=== PATIENT | female | born 1955 | race Caucasian/White ===

== ENCOUNTER 2018-06-05 19:11 | Inpatient (IN) ==
[2018-06-05] MEDS ORDERED: KETOROLAC 30 MG/ML VIAL IV STA (19:24)
[2018-06-05] MEDS ORDERED: ONDANSETRON INJ 2 MG/ML 2 ML VIAL IV STA (19:24)
[2018-06-05] MEDS ORDERED: fentaNYL citrate 100 MCG/2 ML VIAL IV STA (19:24)
[2018-06-05 19:36] LABS: Basophils # (auto) 0.04 K/uL (0-0.2); Basophils % (auto) 0.4 %; Eosinophils # (auto) 0.16 K/uL (0-0.5); Eosinophils % (auto) 1.8 %; Hematocrit (blood only) 44.7 % (37-47); Hemoglobin 15.5 g/dL (12.0-16.0); Immature Granulocytes # (auto) 0.01 K/uL (0.00-0.02); Immature Granulocytes % (auto) 0.1 %; Lymphocytes % (auto) 24.3 %; Mean Corpuscular Hgb Conc 34.7 g/dL (32-36); Mean Corpuscular Volume 98.2 fL (80-100); Mean Platelet Volume 10.4 fL (7.4-10.4); Monocytes # (auto) 0.56 K/uL (0.11-0.59); Monocytes % (auto) 6.2 %; Neutrophils % (auto) 67.2 %; Platelet Count 234 K/uL (130-400); RDW Coefficient of Variation 13.6 % (11.5-14.5); RDW Standard Deviation 48.5 fL (36.4-46.3); Red Blood Count 4.55 M/uL (4.2-5.4); White Blood Count 9.07 K/uL (4.8-10.8)
[2018-06-05 19:50] LABS: iSTAT Hemoglobin 16.3 g/dl (12.0-16.0); iSTAT Ionized Calcium 1.13 mmol/l (1.12-1.32)
[2018-06-05 19:58] LABS: Albumin Level 3.7 gm/dl (3.4-5.0); BUN Creatinine Ratio 14.9 (10-20); Calcium 9.2 mg/dl (8.5-10.1); Creatinine Clr Calc Pharmacy 51.2 ml/min; Est GFR (African American) 55.4; Est GFR (Non-African American) 47.8; Potassium 3.4 mmol/L (3.5-5.1)
[2018-06-05 20:01] LABS: Albumin Globulin Ratio 0.8 (0.9-2); Bilirubin,Total 0.4 mg/dl (0.2-1); Globulin 4.6 gm/dl (2.5-4.0); Total Protein 8.3 gm/dl (6.4-8.2)
[2018-06-05] MEDS ORDERED: OPTIRAY 320 125ml IV PRN (20:18)
--- NOTE | 2018-06-05 20:37 | CT Scan Report ---
ABDOMEN AND PELVIS CT WITH IV CONTRAST CT DOSE: 1430.12 mGy.cm HISTORY: Acute generalized abdominal pain diffuse ab pain TECHNIQUE: Multiaxial CT images of the abdomen and pelvis were performed following the use of intrave nous contrast. A dose lowering technique was utilized adhering to the principles of ALARA. COMPARISON STUDY: CT abdomen and pelvis 05/23/2017. FINDINGS: Study is mildly motion degraded. Bilateral reticular and groundglass opacities are noted with associa la nena bronchial wall thickening. No pneumatosis or pneumoperitoneum. Imaged inferior cardiac chambers a re mildly enlarged. Coronary arterial calcifications are noted. Prior cholecystectomy. Mild dilation of the common bile duct, likely postsurgical. Liver is unremarka ble. Spleen, pancreas and adrenal glands are within normal limits. Kidneys, ureters and urinary bladd er are within normal limits. Heterogeneous marked thickening of the endometrium redemonstrated. No ad nexal mass lesions. Mixed plaque formation about the abdominal aorta without aneurysm. Nonspecific mi ldly prominent iliac chain lymph nodes are seen bilaterally measuring up to 1.2 cm. No small bowel obstruction. Minimal colonic diverticulosis without acute diverticulitis. Appendix deysi ears unremarkable. No ascites or mesenteric inflammation. Soft tissues are unremarkable. Multilevel s pondylitic spurring with facet arthrosis about the lumbar spine. Bones appear grossly intact. IMPRESSION: 1. Marked thickening with heterogeneous appearance of the endometrium redemonstrated. Correlation wit h gynecologic consultation recommended. 2. No bowel obstruction or focal bowel wall thickening. Normal appendix. 3. Bibasilar bronchial wall thickening with groundglass and reticular opacities suggestive of scarrin g/atelectasis with nonspecific pneumonitis also in the differential. 4. Prior cholecystectomy. 5. Additional findings as above. Electronically signed by: Eren Garcia M.D. 06/05/2018 8:36 PM
[2018-06-05 22:20] LABS: Appearance Urine Clear (Clear); Bacteria Urine Automated Negative (Negative); Bilirubin Urine Negative (Negative); Color Urine Yellow; Epithelial Cell Urine Auto >30 /lpf (0-5); Glucose Urine UA Negative (Negative); Ketones Urine Negative (Negative); Leukocyte Esterase Urine 1+ (Negative); Nitrite Urine Negative (Negative); Protein Urine Negative (Negative); Specific Gravity Urine 1.042 (1.000-1.030); Urobilinogen Urine Negative (Negative)
[2018-06-06] MEDS ORDERED: fentaNYL citrate 100 MCG/2 ML VIAL IV PRN (02:27)
--- NOTE | 2018-06-06 03:04 | Emergency Department Note ---
Entered by Gilmar Maldonado acting as a scribe for Keith Gonzalez MD History of Present Illness General Chief complaint: Abdominal Pain Stated complaint: AB PAIN Time Seen by Provider: 06/05/18 19:12 Source: patient History of Present Illness Provider complaint: Abdominal Pain Onset (ago): year(s) 3 Location: abdomen Radiation: other (radiates to pelvis and legs) Pain Consistency: + constant Relieved By: not by medication Associated symptoms: + nausea/vomiting (Only vomiting) and + other (diarrhea) The patient is a 63 y/o white female w/ PMHx of HTN, acute UTI, and asthma who presents to the ED w/ CC of constant abdominal beginning 3 years ago. The patient states she has the pain "all the time". The patient localizes the pain to the bilateral lower abdomen and that it radiates to her pelvis. The patient also adds that the pain radiates to her legs. The patient reports the lower right hurts the most. The patient notes that she is unable to eat. She adds she has intermittent vomiting, and intermittent diarrhea. The patient took Ibuprofen for the pain and it offered no relief. The patient additionally reports that she has a history of endometrial pelvic cancer, but states she is not currently on chemotherapy or radiation. She states the cancer is not operable. The patient reports she does not consume alcohol or use tobacco. The patient notes general problems urinating and moving her bowels. The patient states she is currently taking an antibiotic for a UTI. On antibiotic for UTI Home Medications Home Medications Medication Instructions Recorded Confirmed Type Saccharomyces boulardii [Florastor] 250 mg PO BID #20 cap 05/23/18 06/05/18 Rx hydrocodone-acetaminophen 1 tab PO Q6 PRN 05/23/18 06/05/18 History megestrol 2 tab PO BID 05/23/18 06/05/18 History ondansetron 4 mg PO Q6H PRN #14 tab 05/23/18 06/05/18 Rx ibuprofen 400 mg PO QID PRN 06/05/18 06/05/18 History ibuprofen-diphenhydramine cit 2 cap PO HS PRN 06/05/18 06/05/18 History [Advil PM] Allergies Allergy/AdvReac Type Severity Reaction Status Date / Time morphine Allergy Swelling Verified 05/23/18 17:03 of the Eye Past Med/Surg History Medical History Gout (Chronic) Asthma (Chronic) HTN (hypertension) (Chronic) Morbid obesity (Chronic) Gait abnormality (12/28/13) Surgical History Hx of cholecystectomy (Chronic) Social History Current Living Situation: Spouse Other Information That Helps Us Care for You: No Feels Safe at Home: Yes Safety Concerns: Feels Safe At This Time Smoking Status: Former smoker Hx Alcohol Use: No Hx Substance Use: No Beliefs That Will Affect Care: None Preferred Language: Afghan Review of Systems See HPI for pertinent positives & negatives. and A total of 10 systems reviewed and were otherwise negative Physical Exam Vital Signs Vital Signs - 24 hr 06/05/18 19:21 06/05/18 19:39 06/05/18 20:00 Temperature 98.8 F Temperature Source Oral Sepsis Recent Fever Within 48 Hours No Sepsis Action Taken by Nursing No Action Required Pulse Rate 89 93 H 85 Pulse Rate [Right Finger] Respiratory Rate 22 22 4 L Respiratory Effort / Characteristics Non-Labored Respiratory Depth Normal Blood Pressure 177/108 H Blood Pressure [Left Arm] Blood Pressure Mean 131 Blood Pressure Mean [Left Arm] Pulse Oximetry 98 99 74 L Oxygen Delivery Method Room Air Oxygen Flow Rate 06/05/18 20:30 06/05/18 20:47 06/05/18 21:00 Temperature Temperature Source Sepsis Recent Fever Within 48 Hours Sepsis Action Taken by Nursing Pulse Rate 76 61 57 L Pulse Rate [Right Finger] Respiratory Rate 25 H 16 10 L Respiratory Effort / Characteristics Respiratory Depth Blood Pressure 170/98 H Blood Pressure [Left Arm] Blood Pressure Mean 122 Blood Pressure Mean [Left Arm] Pulse Oximetry 94 99 98 Oxygen Delivery Method Oxygen Flow Rate 06/05/18 21:02 06/05/18 21:30 06/05/18 21:57 Temperature Temperature Source Sepsis Recent Fever Within 48 Hours Sepsis Action Taken by Nursing Pulse Rate 59 L 71 52 L Pulse Rate [Right Finger] Respiratory Rate 13 20 22 Respiratory Effort / Characteristics Respiratory Depth Blood Pressure 246/129 H 153/89 H Blood Pressure [Left Arm] Blood Pressure Mean 168 110 Blood Pressure Mean [Left Arm] Pulse Oximetry 99 99 99 Oxygen Delivery Method Oxygen Flow Rate 06/05/18 21:58 06/05/18 22:00 06/05/18 22:01 Temperature Temperature Source Sepsis Recent Fever Within 48 Hours Sepsis Action Taken by Nursing Pulse Rate 51 L 51 L Pulse Rate [Right Finger] 52 L Respiratory Rate 14 13 Respiratory Effort / Characteristics Respiratory Depth Blood Pressure 163/77 H Blood Pressure [Left Arm] 153/89 H Blood Pressure Mean 105 Blood Pressure Mean [Left Arm] 110 Pulse Oximetry 100 100 100 Oxygen Delivery Method Nasal Cannula Oxygen Flow Rate 2 06/05/18 22:30 06/05/18 22:32 06/05/18 23:00 Temperature Temperature Source Sepsis Recent Fever Within 48 Hours Sepsis Action Taken by Nursing Pulse Rate 60 54 L 61 Pulse Rate [Right Finger] Respiratory Rate 20 13 15 Respiratory Effort / Characteristics Respiratory Depth Blood Pressure Blood Pressure [Left Arm] Blood Pressure Mean 135 Blood Pressure Mean [Left Arm] Pulse Oximetry 100 100 100 Oxygen Delivery Method Oxygen Flow Rate 06/05/18 23:02 06/05/18 23:30 06/05/18 23:32 Temperature Temperature Source Sepsis Recent Fever Within 48 Hours Sepsis Action Taken by Nursing Pulse Rate 61 52 L 53 L Pulse Rate [Right Finger] Respiratory Rate 16 17 17 Respiratory Effort / Characteristics Respiratory Depth Blood Pressure 173/107 H Blood Pressure [Left Arm] Blood Pressure Mean 134 129 Blood Pressure Mean [Left Arm] Pulse Oximetry 100 100 100 Oxygen Delivery Method Oxygen Flow Rate 06/06/18 00:00 06/06/18 00:01 06/06/18 00:30 Temperature Temperature Source Sepsis Recent Fever Within 48 Hours Sepsis Action Taken by Nursing Pulse Rate 55 L 55 L 52 L Pulse Rate [Right Finger] Respiratory Rate 18 18 13 Respiratory Effort / Characteristics Respiratory Depth Blood Pressure 169/67 H Blood Pressure [Left Arm] Blood Pressure Mean 101 Blood Pressure Mean [Left Arm] Pulse Oximetry 99 98 100 Oxygen Delivery Method Oxygen Flow Rate 06/06/18 00:32 06/06/18 01:01 06/06/18 02:02 Temperature Temperature Source Sepsis Recent Fever Within 48 Hours Sepsis Action Taken by Nursing Pulse Rate 57 L 53 L 67 Pulse Rate [Right Finger] Respiratory Rate 14 14 13 Respiratory Effort / Characteristics Respiratory Depth Blood Pressure 145/71 H 153/79 H 153/82 H Blood Pressure [Left Arm] Blood Pressure Mean 95 103 105 Blood Pressure Mean [Left Arm] Pulse Oximetry 99 100 96 Oxygen Delivery Method Oxygen Flow Rate 06/06/18 02:32 Temperature Temperature Source Sepsis Recent Fever Within 48 Hours Sepsis Action Taken by Nursing Pulse Rate 49 L Pulse Rate [Right Finger] Respiratory Rate 15 Respiratory Effort / Characteristics Respiratory Depth Blood Pressure 188/83 H Blood Pressure [Left Arm] Blood Pressure Mean 118 Blood Pressure Mean [Left Arm] Pulse Oximetry 100 Oxygen Delivery Method Oxygen Flow Rate GENERAL: Well nourished, NAD, non-toxic. mildly uncomfortable in appearance. EYE EXAM: Normal conjunctiva. PERRL, no anisocoria and EOM's grossly intact w/o pain. OROPHARYNX: No swelling of the lips, moist mucus membranes. NECK: Supple, no nuchal rigidity, no adenopathy, non-tender. No signs of meningismus. LUNGS: Clear to auscultation bilaterally. Normal chest wall mechanics. HEART: NSR, no MRG. ABDOMEN: Abdomen soft, normo-active bowel sounds, no masses, no rebound or guarding. Mild diffuse abdominal pain, worse in the lower abdomen. BACK: No CVA TTP. SKIN: No rashes and no bruising. UPPER EXTREMITIES: Upper extremities are grossly normal. LOWER EXTREMITIES: No pitting edema. No calf pain. NEURO EXAM: Cranial nerves II-XII grossly intact, normal speech, moves all 4 extremities on command w/o issue. Course 1914: Past medical records reviewed. The patient was evaluated in room A10, and a complete history and physical examination were performed. 2328: I reviewed the patient's case with Dr. Aponte Manufacturing Development Engineer. Oncology. He agrees with current plan of care. He wants her to call the office for follow up. 0055: After further discussion with the son and Dr. Aponte, the son is demanding that the patient be admitted or transferred because he is not able to come get the patient secondary to weather. Dr. Aponte has accepted the patient for transfer. 0129: The accepting facility does not have an open bed and is not sure when one will be open. 0155: I reviewed the patient's case with Dr. Martin, [facility] Hospitalist. He is requesting I contact [facility] for admission. 0201: I reviewed the patient's case with Dr. Gonzalez, [facility] SURGICAL FIRST ASSISTANT. She will not accept the patient for admission. 0230: The patient was signed out to Dr. Oakley at the change of shift pending transport. Administered Medications Discontinued Medications Hydrocodone Bitart/Acetaminophen (Dunn 5/325) 1 tab PO Q6 PRN PRN Reason: Pain Stop: 06/20/18 10:15 Last Admin: 06/06/18 13:59 Dose: 1 tab Hydrocodone Bitart/Acetaminophen (Dunn 5/325) 1 tab PO NOW STA Stop: 06/06/18 16:07 Last Admin: 06/06/18 16:23 Dose: 1 tab Fentanyl Citrate (Fentanyl Citrate) 100 mcg IV NOW STA Stop: 06/05/18 19:25 Last Admin: 06/05/18 19:57 Dose: 100 mcg Fentanyl Citrate (Fentanyl Citrate) 50 mcg IV NOW STA Stop: 06/06/18 04:44 Last Admin: 06/06/18 05:04 Dose: 50 mcg Hydralazine HCl (Hydralazine Hcl) 10 mg IV PRN STA Stop: 06/06/18 10:20 Last Admin: 06/06/18 11:56 Dose: 10 mg Sodium Chloride (Nss 1000ml) 1,000 mls @ 125 mls/hr IV .Q8H GLENROY Stop: 07/06/18 04:44 Last Admin: 06/06/18 11:45 Dose: 125 mls/hr Infusion: 06/06/18 11:41 Dose: 0 mls/hr Admin: 06/06/18 05:04 Dose: 125 mls/hr Sodium Chloride (Nss 1000ml) 500 mls @ 999 mls/hr IV .Q31M ONE Stop: 06/06/18 05:13 Last Infusion: 06/06/18 05:56 Dose: 0 mls/hr Admin: 06/06/18 05:04 Dose: 999 mls/hr Pantoprazole Sodium 40 mg/ (Syringe) 10 mls @ 5 mls/min IV DAILY@1100 GLENROY Stop: 07/06/18 10:59 Last Admin: 06/06/18 11:56 Dose: 5 mls/min Ioversol (Optiray 320 125ml) 115 ml IV ONCE PRN PRN Reason: Interaction Checking Stop: 06/09/18 20:17 Last Admin: 06/05/18 20:18 Dose: 115 ml Ketorolac Tromethamine (Toradol) 30 mg IV NOW STA Stop: 06/05/18 19:25 Last Admin: 06/05/18 19:58 Dose: 30 mg Ondansetron HCl (Zofran) 4 mg IV NOW STA Stop: 06/05/18 19:25 Last Admin: 06/05/18 19:58 Dose: 4 mg Ondansetron HCl (Zofran) 4 mg IV Q6H PRN PRN Reason: Nausea Stop: 07/06/18 10:13 Last Admin: 06/06/18 14:02 Dose: 4 mg Saccharomyces Boulardii (Florastor) 250 mg PO BID GLENROY Stop: 07/06/18 08:59 Last Admin: 06/06/18 10:01 Dose: 250 mg Medical Decision Making Medical Records Attestation: I reviewed the patient's medical records. Home Medications Current Medication List: was personally reviewed by me Laboratory Data Attestation: I reviewed the patient's lab results. Result diagrams: 06/06/18 Unknown 06/06/18 Unknown Lab Results 06/05/18 06/05/18 06/05/18 Range/Units 19:28 19:28 19:32 WBC 9.07 (4.8-10.8) K/uL RBC 4.55 (4.2-5.4) M/uL Hgb 15.5 (12.0-16.0) g/dL POC Hgb (12.0-16.0) g/dl Hct 44.7 (37-47) % POC Hct (37-47) % MCV 98.2 (80-100) fL MCH 34.1 H (25-34) pg MCHC 34.7 (32-36) g/dL RDW Std Deviation 48.5 H (36.4-46.3) fL RDW Coeff of Dhaval 13.6 (11.5-14.5) % Plt Count 234 (130-400) K/uL MPV 10.4 (7.4-10.4) fL Immature Gran % (Auto) 0.1 % Neut % (Auto) 67.2 % Lymph % (Auto) 24.3 % [place] % (Auto) 6.2 % Eos % (Auto) 1.8 % Baso % (Auto) 0.4 % Immature Gran # (Auto) 0.01 (0.00-0.02) K/uL Neut # (Auto) 6.10 (1.4-6.5) K/uL Lymph # (Auto) 2.20 (1.2-3.4) K/uL [place] # (Auto) 0.56 (0.11-0.59) K/uL Eos # (Auto) 0.16 (0-0.5) K/uL Baso # (Auto) 0.04 (0-0.2) K/uL POC Sodium (135-144) mEq/L Sodium 137 (136-145) mmol/L POC Potassium (3.3-5.0) mEq/L Potassium 3.4 L (3.5-5.1) mmol/L POC Chloride (101-112) mEq/L Chloride 103 (98-107) mmol/L Carbon Dioxide 24 (21-32) mmol/L POC Total CO2 (24-31) mEq/l Anion Gap 10.0 (3-11) POC Anion Gap (16-25) mmol/L POC BUN (7-18) mg/dl BUN 18 (7-18) mg/dl Creatinine 1.22 H (0.6-1.2) mg/dl POC Creatinine (0.6-1.3) mg/dl Est Cr Clr Drug Dosing 51.2 ml/min Est GFR ( Amer) 55.4 Est GFR (Non-Af Amer) 47.8 BUN/Creatinine Ratio 14.9 (10-20) Glucose 126 H (70-99) mg/dl POC Glucose (other) (70-99) mg/dl POC Lactic Acid Palmer 2.52 H (0.90-1.70) mmol/L Lactate (0.4-2.0) mmol/L Calcium 9.2 (8.5-10.1) mg/dl POC Ioniz Calcium Cari (1.12-1.32) mmol/l Phosphorus (2.5-4.9) mg/dl Magnesium (1.8-2.4) mg/dl Total Bilirubin 0.4 (0.2-1) mg/dl AST 17 (15-37) U/L ALT 21 (12-78) U/L Alkaline Phosphatase 54 (45-117) U/L Total Protein 8.3 H (6.4-8.2) gm/dl Albumin 3.7 (3.4-5.0) gm/dl Globulin 4.6 H (2.5-4.0) gm/dl Albumin/Globulin Ratio 0.8 L (0.9-2) Lipase 74 (73-393) U/L TSH (0.300-4.500) uIu/ml Urine Color Urine Appearance (Clear) Urine pH (4.5-7.5) Ur Specific [place] (1.000-1.030) Urine Protein (Negative) Urine Glucose (UA) (Negative) Urine Ketones (Negative) Urine Blood (Negative) Urine Nitrite (Negative) Urine Bilirubin (Negative) Urine Urobilinogen (Negative) Ur Leukocyte Esterase (Negative) Urine WBC (Auto) (0-5) /hpf Urine RBC (Auto) (0-4) /hpf U Hyaline Cast (Auto) (0-5) /lpf U Epithel Cells (Auto) (0-5) /lpf Urine Bacteria (Auto) (Negative) Ur Renal Epithelial Cell 06/05/18 06/05/18 06/06/18 Range/Units 19:35 21:30 05:14 WBC (4.8-10.8) K/uL RBC (4.2-5.4) M/uL Hgb (12.0-16.0) g/dL POC Hgb 16.3 H (12.0-16.0) g/dl Hct (37-47) % POC Hct 48 H (37-47) % MCV (80-100) fL MCH (25-34) pg MCHC (32-36) g/dL RDW Std Deviation (36.4-46.3) fL RDW Coeff of Dhaval (11.5-14.5) % Plt Count (130-400) K/uL MPV (7.4-10.4) fL Immature Gran % (Auto) % Neut % (Auto) % Lymph % (Auto) % [place] % (Auto) % Eos % (Auto) % Baso % (Auto) % Immature Gran # (Auto) (0.00-0.02) K/uL Neut # (Auto) (1.4-6.5) K/uL Lymph # (Auto) (1.2-3.4) K/uL [place] # (Auto) (0.11-0.59) K/uL Eos # (Auto) (0-0.5) K/uL Baso # (Auto) (0-0.2) K/uL POC Sodium 141 (135-144) mEq/L Sodium (136-145) mmol/L POC Potassium 3.4 (3.3-5.0) mEq/L Potassium (3.5-5.1) mmol/L POC Chloride 102 (101-112) mEq/L Chloride (98-107) mmol/L Carbon Dioxide (21-32) mmol/L POC Total CO2 23 L (24-31) mEq/l Anion Gap (3-11) POC Anion Gap 21.0 (16-25) mmol/L POC BUN 18 (7-18) mg/dl BUN (7-18) mg/dl Creatinine (0.6-1.2) mg/dl POC Creatinine 1.1 (0.6-1.3) mg/dl Est Cr Clr Drug Dosing ml/min Est GFR ( Amer) Est GFR (Non-Af Amer) BUN/Creatinine Ratio (10-20) Glucose (70-99) mg/dl POC Glucose (other) 122 H (70-99) mg/dl POC Lactic Acid Palmer (0.90-1.70) mmol/L Lactate 1.3 (0.4-2.0) mmol/L Calcium (8.5-10.1) mg/dl POC Ioniz Calcium Cari 1.13 (1.12-1.32) mmol/l Phosphorus (2.5-4.9) mg/dl Magnesium (1.8-2.4) mg/dl Total Bilirubin (0.2-1) mg/dl AST (15-37) U/L ALT (12-78) U/L Alkaline Phosphatase (45-117) U/L Total Protein (6.4-8.2) gm/dl Albumin (3.4-5.0) gm/dl Globulin (2.5-4.0) gm/dl Albumin/Globulin Ratio (0.9-2) Lipase (73-393) U/L TSH (0.300-4.500) uIu/ml Urine Color Yellow Urine Appearance Clear (Clear) Urine pH 6.0 (4.5-7.5) Ur Specific [place] 1.042 H (1.000-1.030) Urine Protein Negative (Negative) Urine Glucose (UA) Negative (Negative) Urine Ketones Negative (Negative) Urine Blood 1+ H (Negative) Urine Nitrite Negative (Negative) Urine Bilirubin Negative (Negative) Urine Urobilinogen Negative (Negative) Ur Leukocyte Esterase 1+ H (Negative) Urine WBC (Auto) 10-30 H (0-5) /hpf Urine RBC (Auto) 5-10 H (0-4) /hpf U Hyaline Cast (Auto) 1-5 (0-5) /lpf U Epithel Cells (Auto) >30 H (0-5) /lpf Urine Bacteria (Auto) Negative (Negative) Ur Renal Epithelial Cell Not Reportable 06/06/18 06/06/18 Range/Units Unknown Unknown WBC 6.88 (4.8-10.8) K/uL RBC 4.16 L (4.2-5.4) M/uL Hgb 13.8 (12.0-16.0) g/dL POC Hgb (12.0-16.0) g/dl Hct 41.1 (37-47) % POC Hct (37-47) % MCV 98.8 (80-100) fL MCH 33.2 (25-34) pg MCHC 33.6 (32-36) g/dL RDW Std Deviation 50.1 H (36.4-46.3) fL RDW Coeff of Dhaval 14.1 (11.5-14.5) % Plt Count 219 (130-400) K/uL MPV 10.4 (7.4-10.4) fL Immature Gran % (Auto) 0.0 % Neut % (Auto) 53.1 % Lymph % (Auto) 34.0 % [place] % (Auto) 8.6 % Eos % (Auto) 3.6 % Baso % (Auto) 0.7 % Immature Gran # (Auto) 0.00 (0.00-0.02) K/uL Neut # (Auto) 3.65 (1.4-6.5) K/uL Lymph # (Auto) 2.34 (1.2-3.4) K/uL [place] # (Auto) 0.59 (0.11-0.59) K/uL Eos # (Auto) 0.25 (0-0.5) K/uL Baso # (Auto) 0.05 (0-0.2) K/uL POC Sodium (135-144) mEq/L Sodium 138 (136-145) mmol/L POC Potassium (3.3-5.0) mEq/L Potassium 3.8 (3.5-5.1) mmol/L POC Chloride (101-112) mEq/L Chloride 105 (98-107) mmol/L Carbon Dioxide 29 (21-32) mmol/L POC Total CO2 (24-31) mEq/l Anion Gap 4.0 (3-11) POC Anion Gap (16-25) mmol/L POC BUN (7-18) mg/dl BUN 16 (7-18) mg/dl Creatinine 1.18 (0.6-1.2) mg/dl POC Creatinine (0.6-1.3) mg/dl Est Cr Clr Drug Dosing 53.0 ml/min Est GFR ( Amer) 57.6 Est GFR (Non-Af Amer) 49.7 BUN/Creatinine Ratio 13.6 (10-20) Glucose 126 H (70-99) mg/dl POC Glucose (other) (70-99) mg/dl POC Lactic Acid [place] (0.90-1.70) mmol/L Lactate (0.4-2.0) mmol/L Calcium 9.0 (8.5-10.1) mg/dl POC Ioniz Calcium Cari (1.12-1.32) mmol/l Phosphorus 3.7 (2.5-4.9) mg/dl Magnesium 1.7 L (1.8-2.4) mg/dl Total Bilirubin (0.2-1) mg/dl AST (15-37) U/L ALT (12-78) U/L Alkaline Phosphatase (45-117) U/L Total Protein (6.4-8.2) gm/dl Albumin (3.4-5.0) gm/dl Globulin (2.5-4.0) gm/dl Albumin/Globulin Ratio (0.9-2) Lipase (73-393) U/L TSH 2.580 (0.300-4.500) uIu/ml Urine Color Urine Appearance (Clear) Urine pH (4.5-7.5) Ur Specific [place] (1.000-1.030) Urine Protein (Negative) Urine Glucose (UA) (Negative) Urine Ketones (Negative) Urine Blood (Negative) Urine Nitrite (Negative) Urine Bilirubin (Negative) Urine Urobilinogen (Negative) Ur Leukocyte Esterase (Negative) Urine WBC (Auto) (0-5) /hpf Urine RBC (Auto) (0-4) /hpf U Hyaline Cast (Auto) (0-5) /lpf U Epithel Cells (Auto) (0-5) /lpf Urine Bacteria (Auto) (Negative) Ur Renal Epithelial Cell Imaging Data Radiologist's Impression: Radiology results as stated below per my review and the radiologist's interpretation: ABDOMEN AND PELVIS CT WITH IV CONTRAST CT DOSE: 1430.12 mGy.cm HISTORY: Acute generalized abdominal pain diffuse ab pain TECHNIQUE: Multiaxial CT images of the abdomen and pelvis were performed following the use of intravenous contrast. A dose lowering technique was utilized adhering to the principles of ALARA. COMPARISON STUDY: CT abdomen and pelvis 05/23/2017. FINDINGS: Study is mildly motion degraded. Bilateral reticular and groundglass opacities are noted with associated bronchial wall thickening. No pneumatosis or pneumoperitoneum. Imaged inferior cardiac chambers are mildly enlarged. Coronary arterial calcifications are noted. Prior cholecystectomy. Mild dilation of the common bile duct, likely postsurgical. Liver is unremarkable. Spleen, pancreas and adrenal glands are within normal limits. Kidneys, ureters and urinary bladder are within normal limits. Heterogeneous marked thickening of the endometrium redemonstrated. No adnexal mass lesions. Mixed plaque formation about the abdominal aorta without aneurysm. Nonspecific mildly prominent iliac chain lymph nodes are seen bilaterally measuring up to 1.2 cm. No small bowel obstruction. Minimal colonic diverticulosis without acute diverticulitis. Appendix appears unremarkable. No ascites or mesenteric inflammation. Soft tissues are unremarkable. Multilevel spondylitic spurring with facet arthrosis about the lumbar spine. Bones appear grossly intact. IMPRESSION: 1. Marked thickening with heterogeneous appearance of the endometrium redemonstrated. Correlation with gynecologic consultation recommended. 2. No bowel obstruction or focal bowel wall thickening. Normal appendix. 3. Bibasilar bronchial wall thickening with groundglass and reticular opacities suggestive of scarring/atelectasis with nonspecific pneumonitis also in the differential. 4. Prior cholecystectomy. 5. Additional findings as above. Electronically signed by: Eren Garcia M.D. 06/05/2018 8:36 PM MDM Narrative The patient is a 63 y/o white female w/ PMHx of HTN, acute UTI, and asthma who presents to the ED w/ CC of constant abdominal beginning 3 years ago. Differential diagnosis: Etiologies such as biliary colic, cholecystitis, hepatitis, perihepatitis, pancreatitis, cardiac disease, pancreatitis, gastritis, peptic ulcer disease, appendicitis, ovarian cyst, ovarian torsion, pelvic inflammatory disease, cystitis, diverticulitis, mesenteric ischemia, inflammatory bowel disease, ileus , bowel obstruction, aortic pathology, shingles, as well as others were considered. Patient was seen and evaluated the bedside. The patient states that she has had a chronic abdominal pain which is acutely worse today. The patient does complain of mild diffuse abdominal discomfort. Upon review of the records the patient does have a history of endometrial cancer per the patient's blood work. The patient did have blood work completed along with a CT of the abdomen pelvis and urinalysis. Patient's blood work showed a normal white count. The patient has a normal H& H. Patient has mild kidney dysfunction but is fairly unchanged from prior from 1.1 to 1.2 creatinine and mild hypokalemia. The patient did not complain of any urinary symptoms believe urinalysis is likely a contaminant given the number of epithelial cells. Patient CT abdomen abdomen pelvis did show thickening and heterogeneous appearance of the endometrium which is consistent with the patient's prior history of endometrial cancer. I did discuss these findings with the patient. The patient was accompanied by another person who was stating that they are his son-in-law had spoken with some on-call physician that was stating that she needs to have an operation now. I did discuss that her blood work is fairly unchanged compared to prior and the patient CT is grossly unchanged from prior and the patient does have likely endometrial cancer. After further discussion I stated that I would talk with the Pilar Kolb physician. I was able to speak with Dr. Aponte who is the patient's home care specialist oncologist. Per Dr. Aponte the patient has not been seen in several months and the patient is not made it to any appointments in the past. This has been likely due to transportation issues. We did discuss the CT findings as well as the blood work which I stated are unchanged and the patient has a stable H&H. Upon further discussion the son-in-law reportedly did call Dr. Aponte and at his behest Dr. Aponte is willing to accept the patient has a transfer. Unfortunately the transferring hospital was at capacity did not have any current bed availability and the patient cannot be transferred at this time. I did speak with the on-call hospitalist who declined to evaluate the patient at this time. I did speak discussed the case with the SURGICAL FIRST ASSISTANT physician who believe that the patient was better suited for the medicine service. After further discussion with my colleague in the emergency department he was willing to monitor the patient as there was a possibility that the patient would have a bed in the morning. I did sign out the patient to the nighttime physician Dr. Oakley pending further evaluation and disposition and potential transfer. Impression & Plan Abdominal pain, Hypertension, Endometrial cancer Discharge Plan Visit Data *Final* Discharge Date/Time: 06/06/18 10:23 Chief Complaint: Abdominal Pain Stated Complaint: AB PAIN ED Provider: Unruly Oakley Discharge Problem: Abdominal pain, Hypertension, Endometrial cancer Patient Disposition: Admitted As Inpatient Discharge Instructions Interventions: ED Discharge Assessment Last Done: 06/06/18 10:23 The scribe's documentation has been prepared under my direction and personally reviewed by me in its entirety. I confirm that the note above accurately reflects all work, treatment, procedures, and medical decision making performed by me.
[2018-06-06] MEDS ORDERED: fentaNYL citrate 100 MCG/2 ML VIAL IV STA (04:43)
[2018-06-06] MEDS ORDERED: SODIUM CHLORIDE 0.9% 1000ML 500 ML IV ONE (04:43)
[2018-06-06] MEDS: SODIUM CHLORIDE 0.9% 1000ML 1,000 ML IV SCH ×2 (05:04→11:45)
--- NOTE | 2018-06-06 06:06 | Emergency Department Note ---
ED Visit Note ED Physician Sign Out Note: 63 yr old female with reportedly known endometrial CA with persistent abdominal pain and periodic vaginal bleeding arrived earlier for persistent discomfort. Evaluated by Dr Gonzalez and after prolonged stay decision to transfer to [facility] as patient unable to go home and no Scientist Engineer Onc at this facility. Dr Gonzalez already set up transfer. Due to prolonged time to transfer attempt was made at admitting to this facility while awaiting opening bed but both Scientist Engineer and Hospitalist have declined to do this at this time requesting staying in ED longer to see if bed opens up. Patient was signed out to me pending bed opening up. I reviewed case at bedside with patient and . She notes ongoing pain and issues for 3 years. She admits she has follow up with Scientist [facility] Onc in [place] but has been unable to get to any appointments for this due to weather and transport issues. She has been using [place] periodically for pain. She denies vomiting though notes continued abdominal pain. NO peritonitis by exam. Review of CT unremarkable. Labs earlier with elevated POC lactate. She was given 500ml IV fluids by me and repeat Lactate wnl at this time. She has HTN which is improving with pain medications. She is stable and in no distress. I reviewed issues with transfer and she and note they can not go home and still wish to be transferred to [facility] to be evaluated by Scientist Engineer Onc. Reviewed plan that patient has accepting physician there Dr Aponte. Patient eventually fell asleep and in no distress. I signed case out to Dr Smiley with plan for recheck of bed status in a few hours and further decision on disposition at that time. Unruly Oakley MD
[2018-06-06] MEDS ORDERED: SACCHAROMYCES BOULARDII 250 MG CAP PO SCH (09:00)
[2018-06-06] MEDS ORDERED: ZOLPIDEM TARTRATE 5 MG TAB PO PRN (10:14)
[2018-06-06] MEDS ORDERED: ACETAMINOPHEN 325 MG TAB PO PRN (10:14)
[2018-06-06] MEDS ORDERED: ALUMINUM/MAGNESIUM SUSP 30 ML UDC PO PRN (10:14)
[2018-06-06] MEDS ORDERED: POLYETHYLENE (MIRALAX) 17 GM PACK PO PRN (10:14)
[2018-06-06] MEDS ORDERED: ONDANSETRON INJ 2 MG/ML 2 ML VIAL IV PRN (10:14)
[2018-06-06] MEDS ORDERED: MAGNESIUM HYDROXIDE SUSP 30 ML UDC PO PRN (10:14)
[2018-06-06] MEDS ORDERED: HYDROCODONE/ACETAMOPHEN 5/325MG TAB PO PRN (10:16)
[2018-06-06] MEDS ORDERED: HydrALAZINE HCL 20 MG/ML VIAL IV STA (10:19)
--- NOTE | 2018-06-06 10:24 | Emergency Department Note ---
ED Visit Note The patient was signed out to me awaiting transfer to [facility]. The patient was accepted by Dr. Aponte. He is a gynecology oncologist. The patient has chronic abdominal pain and is being transferred there for surgery. There were no beds available overnight and we called back this morning and they stated they have to hold in the emergency department and could not accept the patient today. They may be able to accept the patient later if beds open up otherwise they did not know a good timeframe when the patient could be transferred there. For this reason, I spoke with the hospitalist who will admit the patient for pain control and awaiting transfer to [facility]. .
[2018-06-06 10:57] LABS: Basophils # (auto) 0.05 K/uL (0-0.2); Basophils % (auto) 0.7 %; Eosinophils # (auto) 0.25 K/uL (0-0.5); Eosinophils % (auto) 3.6 %; Hematocrit (blood only) 41.1 % (37-47); Hemoglobin 13.8 g/dL (12.0-16.0); Lymphocytes # (auto) 2.34 K/uL (1.2-3.4); Mean Corpuscular Volume 98.8 fL (80-100); Mean Platelet Volume 10.4 fL (7.4-10.4); Monocytes # (auto) 0.59 K/uL (0.11-0.59); Monocytes % (auto) 8.6 %; Neutrophils # (auto) 3.65 K/uL (1.4-6.5); Neutrophils % (auto) 53.1 %; Platelet Count 219 K/uL (130-400); RDW Coefficient of Variation 14.1 % (11.5-14.5); RDW Standard Deviation 50.1 fL (36.4-46.3); Red Blood Count 4.16 M/uL (4.2-5.4); White Blood Count 6.88 K/uL (4.8-10.8)
[2018-06-06 11:07] LABS: Mean Corpuscular Hgb Conc 33.6 g/dL (32-36)
[2018-06-06 11:15] LABS: BUN Creatinine Ratio 13.6 (10-20); Est GFR (African American) 57.6; Est GFR (Non-African American) 49.7; Magnesium 1.7 mg/dl (1.8-2.4); Potassium 3.8 mmol/L (3.5-5.1)
[2018-06-06 11:26] LABS: Phosphorus 3.7 mg/dl (2.5-4.9)
[2018-06-06] MEDS ORDERED: PANTOprazole 40 MG in SYRINGE 0 ML IV SCH (12:00)
--- NOTE | 2018-06-06 12:44 | History and Physical Report ---
DATE OF ADMISSION: 06/05/2018 This is level 3 inpatient admission, 35 minutes. CHIEF COMPLAINT: Possible malignancy of endometrium associated with vaginal bleeding spot. HISTORY OF PRESENT ILLNESS: Patient is a 63-year-old white female with a significant past medical history of hypertension, UTI, endometrial cancer, gout, asthma, hypertension, morbid obesity, history of cholecystectomy, postmenopausal vaginal bleeding, thickened endometrium, came to the hospital Emergency Room yesterday on 06/05/2018. Patient's chief complaint was abdominal pain for 3 years associated with vaginal bleeding, has been having pain all the time. The pain was localized in bilateral lower abdomen, radiation to her pelvis and her legs too. Patient reportedly is not able to eat, has intermittent vomiting, intermittent diarrhea. She reported a history of endometrial pelvic cancer, currently not on any chemo or radiation therapy. She was reporting that the cancer was not operable. She reportedly was taking an antibiotic for current UTI. Patient was visiting Emergency Room at 7 o'clock last night. ED physician was planning to transfer to [facility] for further evaluation and treatment, and it had been taking time. I was told the ED physician had all the paperwork done and had accepting physicians in [facility]; however, a bed was not available yet. Therefore, they asked hospitalist to admit the patient. When I interviewed the patient, patient was in sleep, in no acute distress, awakable, conversational, tired, answered simple questions, denied fever or chills, occasional cough, denied difficulty breathing; however, she is on oxygen now, on 2 L/min reported that when she has pain, she needed oxygen. Denied nausea or vomiting. Currently abdominal pain is fairly well controlled. Denied dysuria, urgency, or frequencies. Denied diarrhea or constipation. Denied chest pain, palpitation, or lower extremity swelling. Denied hemoptysis. Denied facial droop, slurry speeches, or local weakness. Denied skin rashes, however, patient did report she has no appetite. ALLERGIES: MORPHINE WHICH CAUSED EYE SWELLING. PAST MEDICAL HISTORY: Includes gout, asthma, hypertension, morbid obesity, gait abnormalities. PAST SURGICAL HISTORY: Includes cholecystectomy. SOCIAL HISTORY: Denied alcohol abuse disorder, denied tobacco abuse disorder, denied illicit drug abuse; however, reports she is a secondhand smoker. PHYSICAL EXAMINATION: VITAL SIGNS: Temperature 37.1, pulse 85, respiratory rate 22, pulse oximetry was 99% on 2 L. GENERAL: Patient is well developed, looked tired and mildly lethargic, possible mildly uncomfortable because of lower abdomen pain. HEENT: Head is normocephalic. Pupils equal, round, responsive to light. Ears were normal. Nose was normal. Lips not dry. Moist mucous membranes. NECK: Supple. Thyroid: No enlargement. Trachea midline. HEART: Regular rhythm, S1 and S2, no murmur. LUNGS: Mildly decreased breathing sounds. There was no wheezing, rhonchi, or crackles. ABDOMEN: Soft, bowel sounds positive, no obvious mass, no rebound or guarding, mild diffuse lower abdomen pain, worse in the lower abdomen. SKIN: No rashes. No bruits. EXTREMITIES: Bilateral upper and lower extremities: No swelling. Homans sign was negative. Calf was nontender. NEUROLOGICAL: Cranial nerves II through XII were intact. There was no focal deficit. LABORATORY STUDIES: WBC 9.0, hemoglobin 16, hematocrit 48, platelets 234. Blood glucose 122. Lactate 2.5 and repeated 1.3. Sodium 141, potassium 3.4, BUN 18, creatinine 1.2, total bilirubin 0.4, AST 17, ALT 21, alkaline phosphatase 54, total protein 8.3, albumin 3.7, lipase 74. UA shows 1+ blood, a lot of epithelial cells, WBC 10-34. IMAGING STUDIES: In abdominal CT studies in the Emergency Room, there was marked thickening with heterogeneous appearance of the endometrium redemonstrated. Recommended gynecological consultation. No bowel obstructions. Bilateral bronchial wall thickening with ground-glass and reticular opacities suggesting scarring or atelectasis. ASSESSMENT AND PLAN: A 63-year-old white female with the conditions seen below. 1. Likely endometrial malignancy associated with vaginal spotting for 3 years, comes and goes. 2. Low abdominal pain, nausea, vomiting, not able to eat, comes and goes, likely from the endometrial malignancy. 3. Accelerated hypertension. 4. Mild bradycardia. Heart rate in 50s. 5. Morbid obesity. 6. History of asthma, currently is on oxygen 2 L/min. 7. Recent urinary tract infection. 8. History of gout. 9. History of asthma. 10. History of gait abnormality. 11. Possible mild kidney injury with creatinine mild elevation of 1.2 from her previous 1.17. 12. Like I mentioned above, ED physician has worked on transferring patient to [facility], will be evaluated by gynecology oncologist, accepting physician is Dr. Aponte. I heard from the nursing staff all the paperwork and consent of transferring and transferring order had been done. I will keep the patient in the hospital for now because she is not able to eat and drink well, I will give some gentle IV fluid. Because patient has possible acute kidney injury with elevated creatinine at 1.2, I will follow up renal functions. 13. Patient has accelerated hypertension, will give hydralazine as needed. 14. We will check TSH. 15. Morbid obesity, possible O2 dependent chronically, possible sleep apnea. Will continue oxygen, outpatient followup with PCP. 16. 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 I recommended her to continue to follow up with her after [facility] visit. 17. For the deep venous thrombosis prophylaxis, I will not order any heparin products for now because she reportedly has vaginal spotting which come and go. 18. Gastrointestinal prophylaxis will be Protonix and Zofran as needed. 19. Discussed with the patient and her at bedside, answered all the questions. 35 minutes. MTDD
[2018-06-06] MEDS ORDERED: HYDROCODONE/ACETAMOPHEN 5/325MG TAB PO STA (16:06)
--- NOTE | 2018-06-07 06:55 | Discharge Summary ---
Date of Service June 07, 2018 Principal Diagnosis abd pain , and endomentrium cancer Discharge Data Allergies Allergy/AdvReac Type Severity Reaction Status Date / Time morphine Allergy Swelling Verified 05/23/18 17:03 of the Eye Consultations 06/06/18 01:29 ED Decision to Admit Stat Ordered Studies 06/05/18 19:24 CT abd pelvis IV con only Stat Hospital Course (1) Endometrial cancer: A 63-year-old white female with the conditions seen below. 1. Likely endometrial malignancy associated with vaginal spotting for 3 years, comes and goes. 2. Low abdominal pain, nausea, vomiting, not able to eat, comes and goes, likely from the endometrial malignancy. 3. Accelerated hypertension. 4. Mild bradycardia. Heart rate in 50s. 5. Morbid obesity. 6. History of asthma, currently is on oxygen 2 L/min. 7. Recent urinary tract infection. 8. History of gout. 9. History of asthma. 10. History of gait abnormality. 11. Possible mild kidney injury with creatinine mild elevation of 1.2 from her previous 1.17. 12. Like I mentioned above, ED physician has worked on transferring patient to [facility], will be evaluated by gynecology oncologist, accepting physician is Dr. Aponte. I heard from the nursing staff all the paperwork and consent of transferring and transferring order had been done. I will keep the patient in the hospital for now because she is not able to eat and drink well, I will give some gentle IV fluid. Because patient has possible acute kidney injury with elevated creatinine at 1.2, I will follow up renal functions. 13. Patient has accelerated hypertension, will give hydralazine as needed. 14. We will check TSH. 15. Morbid obesity, possible O2 dependent chronically, possible sleep apnea. Will continue oxygen, outpatient followup with PCP. 16. 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 I recommended her to continue to follow up with her after [facility] visit. 17. For the deep venous thrombosis prophylaxis, I will not order any heparin products for now because she reportedly has vaginal spotting which come and go. 18. Gastrointestinal prophylaxis will be Protonix and Zofran as needed. 19. Discussed with the patient and her at bedside, answered all the questions pt got bed, was transfered at rn shift mgr, I did not physically see and exame pt. Total Time Total Time Spent Total Time Spent (In Minutes): 10 Discharge Plan Discharge Items Patient Disposition: Transfer Acute Care Hospital Reason For Visit: ENDOMETRIUM MALIGNANCY Discharge Diagnosis: endometrium malignancy Discharge Goals: Decrease discomfort, Diagnostic testing, Improve disease control and Improve function Activity: Per 'Additional Instructions' section Non-emergency contact: Primary Care Provider, Surgeon and Carbon Coating Machine Operator/ Cleaning Team Member Call non-emergency contact if: you have any medication questions Diet: Regular Addtl Provider Instructions: Pt presents with acute on chronic abdominal pain one day prior to planned gynecological surgery for treatment of her pain and malignancy. to be tranferred today. Prescriptions: Continue hydrocodone-acetaminophen 5-325 mg tablet 1 tab PO Q6 PRN (Reason: Pain) RF: 0 megestrol 20 mg tablet 2 tab PO BID RF: 0 ondansetron 4 mg tablet,disintegrating 4 mg PO Q6H PRN (Reason: nausea and vomiting) Qty: 14 RF: 0 Saccharomyces boulardii [Florastor] 250 mg capsule 250 mg PO BID Qty: 20 RF: 0 ibuprofen 400 mg Tablet 400 mg PO QID PRN (Reason: Pain) RF: 0 ibuprofen-diphenhydramine cit [Advil PM] 200-38 mg Tablet 2 cap PO HS PRN (Reason: Sleep) RF: 0 Stand-Alone Forms: [employer] [facility] [employer] Discharge Orders: Discharge Order (Routine); Ordered 06/06/18 Ordered By: Sarah Hummel Admission Data Admit Date/Time: 06/06/18 09:59 Attending Provider: Unruly Caban Admit Provider: Unruly Caban Primary Care Provider: PCP,NO Other Providers: Wan Martin Service: Telemetry Medical Other Interventions: Discharge Summary Assessment (RN) Last Done: 06/06/18 19:54 DC Date/Time DO NOT enter until pt leaves facility: 06/06/18 20:45
== END 2018-06-06 20:45 | disposition short-term general hospital (02) | DRG 755 ==
LOC: ED 19:11 → 2N 06-06 09:59